=== PATIENT | male | born 1980 | race Caucasian/White ===

== ENCOUNTER → 2017-08-20 | Outpatient (CLI) | payer OTHER ==
[2017-08-20 08:30] LABS: BASOPHIL % 0.3 % (0-2); PLATELET COUNT 387 x10^3mcL (130-400); RED CELL DISTRIBUTION WIDTH 13.1 % (11.5-14.5)
[2017-08-20 08:40] LABS: ALBUMIN 4.1 g/dL (3.4-5.0); ALKALINE PHOSPHATASE 67 U/L (46-116); ALT/SGPT 53 U/L (16-63); AST/SGOT 20 U/L (15-37); BILIRUBIN DIRECT 0.12 mg/dL (0.0-0.2); BILIRUBIN TOTAL 0.7 mg/dL (0.20-1.00); CALCIUM 8.6 mg/dL (8.5-10.1); CARBON DIOXIDE 29.5 mmol/L (21-32); CHLORIDE SERUM 103 mmol/L (98-107); CHOLESTEROL 209 mg/dL (<200); CHOLESTEROL/HDL RATIO 5.8; GFR1 > 60 mL/min; GLUCOSE SERUM 106 mg/dL (74-106); HDL CHOLESTEROL 36 mg/dL (40-60); POTASSIUM SERUM 3.7 mmol/L (3.5-5.1); SODIUM SERUM 140 mmol/L (136-145); TOTAL PROTEIN, SERUM 8.1 g/dL (6.4-8.2); TRIGLYCERIDES 236 mg/dL (<150)
== END | disposition home or self-care (01) ==
LOC: LB 07:59
PROVIDERS: Internal Medicine
DX: Z00.00 Encounter for general adult medical examination without abnormal findings (principal)

== ENCOUNTER → 2017-10-09 | Outpatient (CLI) | payer OTHER ==
[2017-10-09 08:31] LABS: ALT/SGPT 63 U/L (16-63); AST/SGOT 37 U/L (15-37); LACTIC DEHYDROGENASE (LDH) 144 U/L (100-190)
== END | disposition home or self-care (01) ==
LOC: LB 07:54
PROVIDERS: Dermatology
DX: B35.4 Tinea corporis (principal)

== ENCOUNTER → 2018-03-05 | Outpatient (CLI) | payer OTHER ==
[2018-03-05 10:01] LABS: ALT/SGPT 45 U/L (16-63); AST/SGOT 24 U/L (15-37); LACTIC DEHYDROGENASE (LDH) 196 U/L (100-190)
== END | disposition home or self-care (01) ==
LOC: CT 08:54
PROVIDERS: Internal Medicine
DX: B35.4 Tinea corporis (principal); R42 Dizziness and giddiness